=== PATIENT | male | born 1985 | race Caucasian/White ===

== ENCOUNTER 2020-02-25 14:41 | Emergency (ER) | payer SELFPAY ==
[~2020-02-25] VITALS: Ht 180.3 cm; Wt 86.2 kg
--- NOTE | 2020-02-25 14:50 | NUR ---
FOUND SLEEPING AT [facility] BATHROOM ADMITTED TO [place] USE. PATIENT ASLEEP BUT AROUSABLE, NO DISTRESS NOTED, ATTACHED TO THE PORT ENGINEER.
--- NOTE | 2020-02-25 19:21 | NUR ---
Patient a/ox4, no distress noted. Patient given written and verbal discharge instructions. Patient verbalizes understanding of instructions. Patient is ambulatory with steady gait. Refuses offer of prison placement. Patient given list of available shelters in surrounding area.
[2020-02-25 19:22] VITALS: BP 142/52
== END 2020-02-25 19:22 | disposition home or self-care (01) ==
LOC: ER 14:49
DX: F12.10 Cannabis abuse, uncomplicated (principal); R40.0 Somnolence; Z59.0 Homelessness